=== PATIENT | male | born 2000 | race Caucasian/White ===

== ENCOUNTER 2019-01-26 21:35 | Emergency (ER) | payer OTHER ==
[~2019-01-26] VITALS: Ht 182.9 cm; Wt 95.5 kg
[2019-01-26 21:36] VITALS: BP 124/77
[2019-01-26] MEDS ORDERED: ONDANSETRON 4 MG ORAL DISINTEGRATING TAB (Q0162 PER 1MG) PO ONE (22:45)
[2019-01-26] MEDS ORDERED: GI COCKTAIL 50ML BTL(HYOSCYAMINE/MAALOX/LIDOCAINE VISCOUS)(1:3:1) PO ONE (22:45)
[2019-01-26 22:52] LABS: BASO % 0.6 % (0.0-1.0); EOS # 0.2 10^3/uL (0.0-0.5); EOS % 2.7 % (0.0-3.0); HEMATOCRIT 45.2 % (42.0-52.0); HEMOGLOBIN 15.3 g/dl (13.5-17.5); LYMPH # 2.2 10^3/uL (1.5-5.0); LYMPH % 31.9 % (24.0-44.0); MEAN CORPUSCULAR HEMOGLOBIN 30.4 pg (27.0-33.0); MEAN CORPUSCULAR HGB CONC 33.8 g/dl (32.0-36.5); MEAN CORPUSCULAR VOLUME 89.9 fl (80.0-96.0); MONO # 0.6 10^3/uL (0.0-0.8); NEUTROPHILS # 3.9 10^3/uL (1.5-8.5); NEUTROPHILS % 55.4 % (36.0-66.0); PLATELET COUNT, AUTOMATED 229 10^3/uL (150-450); RED BLOOD COUNT 5.03 10^6/uL (4.30-6.10)
[2019-01-26] MEDS ORDERED: ONDA4TAB6 PO (23:53)
[2019-01-26] MEDS ORDERED: ZANT150T40 PO (23:53)
--- NOTE | 2019-01-27 00:12 | ECGEPIP ---
[facility] - ED Test Date: 2019-01-26 Pat Name: ALEXSANDRA EMNDOZA Department: Room: - Gender: Male Staff Interpreter: ct : 2000 Requested By: Jesus Pisano Order Number: [id number] Reading MD: Jesus Merritt Measurements Intervals [place] Rate: 62 P: 52 [place]: 188 QRS: -2 QRSD: 116 T: 51 QT: 384 QTc: 390 Interpretive Statements SINUS RHYTHM INCOMPLETE RIGHT BUNDLE BRANCH BLOCK BENIGN EARLY REPOLARIZATION NO PRIORS FOR COMPARISON Electronically Signed on 01-27-2019 0:11:57 EDT by Jesus Merritt
--- NOTE | 2019-01-27 02:32 | REP ---
Clinical: Acute chest pain . Comparison: None . Technique: PA and lateral. Findings: The mediastinum and cardiac silhouette are normal. The lung kirkpatrick are clear and without acute consolidation, effusion, or pneumothorax. The skeletal structures are intact and normal. Impression: 1. No acute cardiopulmonary process. Electronically Signed by Ash Mcknight MD 01/27/2019 02:24 A
== END 2019-01-26 23:57 | disposition home or self-care (01) ==
LOC: M ED 21:35
DX: R07.89 Other chest pain (principal); K21.0 Gastro-esophageal reflux disease with esophagitis; R06.02 Shortness of breath; F17.200 Nicotine dependence, unspecified, uncomplicated; Z88.1 Allergy status to other antibiotic agents
CPT/HCPCS: 36415; 71046; 80047; 82550; 85025; 93005; 99284; Q0162